=== PATIENT | male | born 1955 | race Caucasian/White ===

== ENCOUNTER → 2017-04-17 | Day surgery (SDC) | payer MEDICARE, OTHER ==
[2017-04-13 08:46] VITALS: BMI 26.0
--- NOTE | 2017-04-13 09:21 | PAT Medication Instructions ---
Service Date Apr 13, 2017. Current Home Medication List Aspirin (Aspirin Ec), 650 MG PO PRN Tapentadol Hcl (Nucynta), 150 MG PO HS [Vicodin], 1 TAB PO QID Medication Instructions For Your Scheduled Surgery - Check with for instructions: Aspirin (Aspirin Ec), 650 MG PO PRN - Take the following medications the morning of surgery with a sip of water: [Vicodin], 1 TAB PO QID (may take if needed up to 4 hours prior to surgery if needed) - Take the following medications as scheduled the night before surgery: Tapentadol Hcl (Nucynta), 150 MG PO HS [Vicodin], 1 TAB PO QID If you have any questions please call us atAspirin (Aspirin Ec), 650 MG PO PRN or [phone] or [phone]
[~2017-04-17] VITALS: Ht 167.6 cm; Wt 72.9 kg
[~2017-04-17] MED LIST: ASPI325T39 PO; ATROPINE SULFATE 0.1 MG/ML 5ML SYR IV PRN; BACITRACIN OINT 15 GM TUBE ONE; EpHEDrine SULFATE INJ 50 MG/ML AMP IV PRN; FENTANYL CITRATE INJ 50 MCG/1 ML 2 ML VIAL IV PRN; FENTANYL CITRATE INJ 50 MCG/1 ML 2 ML VIAL ONE; LACTATED RINGER'S 1000ML 1,000 ML IV SCH; LIDOCAINE HCL 1% 20 ML VIAL ONE; LIDOCAINE HCL 2% 2 ML VIAL (20MG/ML) ONE; LIDOCAINE/EPINEPHRINE 1% 20 ML VIAL ONE; MIDAZOLAM HCL 1 MG/ML 2ML VIAL ONE; ONDANSETRON INJ 2 MG/ML 2 ML VIAL IV PRN; OXYCODONE/ACETAMINOPHEN 5-325 TAB PO PRN; PROMETHAZINE HCL INJ 6.25 MG in SODIUM CHLORIDE 0.9% 50ML 50 ML IV PRN; PROPOFOL IV EMULSION 10 MG/ML 20 ML VIAL IV ONE; SODIUM CHLORIDE 0.9% 1000ML 1,000 ML IV SCH; TAPE50TA5 PO; VICODIN PO
[2017-04-17 05:40] VITALS: BP 143/87; PULSE 87; TEMP 36.5; O2SAT 96; Ht 167.6 cm; Wt 72.9 kg
--- NOTE | 2017-04-17 07:05 | History & Physical Bridge Note ---
H&P Re-Evaluation Bridge Note: I have examined the patient, reviewed the History & Physical and in the interval since the performance of the History & Physical I have noted the following changes of clinical significance: No changes noted
--- NOTE | 2017-04-17 08:14 | [facility] Post Operative Brief Note ---
Immediate Operative Summary Operative Date Apr 17, 2017. Pre-Operative Diagnosis Chronic intractable headache, unspecified headache left temporal area Post-Operative Diagnosis Chronic intractable headache, unspecified headache left temporal area Procedure(s) Performed Left temporal artery biopsy Surgeon Dr. Fan Castellanos Client Strategist Surgeon(s) Carlita Oakley PA-C Estimated Blood Loss 3 mL Findings See dictation Specimens Permanent specimens A: Left temporal artery biopsy Drains None Anesthesia Local with IV sedation Complication(s) None Disposition Recovery Room / PACU
--- NOTE | 2017-04-17 08:24 | Discharge Instructions ---
Discharge Instructions Date of Service Apr 17, 2017. Admission Reason for Admission: Chronic Intractable Headaches Discharge Discharge Diagnosis / Problem: Same Discharge Goals Goal(s): Diagnostic testing Activity Recommendations Activity Limitations: resume your previous activity . Instructions / Follow-Up Instructions / Follow-Up MEDICATIONS: Resume previous medications unless instructed otherwise by your surgeon. * Ibuprofen 600 mg every 6 hours with food * Tylenol 650 mg every 4 hours, as needed for pain SPECIAL CARE INSTRUCTIONS: * May shower in 24 hours. Let water run over area and pat dry. * Leave steri strips on for 7 days and then remove * Call the surgeon's office with any questions or concerns - (ex. temperature higher than 101 degrees F, excessive bleeding or pain). FOLLOW UP VISIT: If not already scheduled, please call the office to schedule a two week follow- up appointment. Office number Current Hospital Diet Patient's current hospital diet: Discharge Diet Recommended Diet: Regular Diet Procedures Procedures Performed: Left temporal artery biopsy Pending Studies Studies pending at discharge: yes List of pending studies: Pathology Medical Emergencies . Who to Call and When: Medical Emergencies: If at any time you feel your situation is an emergency, please call 911 immediately. . Non-Emergent Contact Non-Emergency issues call your: Primary Care Provider, Surgeon Call Non-Emergent contact if: your pain is worsening, wound has increased drainage, wound has increased redness . "Provider Documentation" section prepared by Fan Castellanos. . VTE Core Measure Inpt VTE Proph given/why not?: Treatment not indicated
--- NOTE | 2017-04-17 08:36 | Anesthesiology Progress Note ---
Anesthesia Post Op Note Date & Time Apr 17, 2017 at 08:36 Vital Signs Pain Intensity: 7.0 Vital Signs Past 12 Hours Date Time Temp Pulse Resp B/P (MAP) Pulse Ox O2 Delivery O2 Flow Rate FiO2 04/17/17 08:25 69 16 121/82 100 Oxymask 10 04/17/17 08:19 36.3 66 12 119/81 99 Oxymask 10 04/17/17 05:40 36.5 87 18 143/87 (105) 96 Room Air Notes Mental Status: alert / awake / arousable, participated in evaluation Pt Amnestic to Procedure: Yes Nausea / Vomiting: adequately controlled Pain: adequately controlled Airway Patency, RR, SpO2: stable & adequate BP & HR: stable & adequate Hydration State: stable & adequate Anesthetic Complications: no major complications apparent
[2017-04-17 08:55] VITALS: BP 148/85; PULSE 67; TEMP 36.7; O2SAT 95
[2017-04-17 09:25] VITALS: BP 141/93; PULSE 77; O2SAT 96
--- NOTE | 2017-04-17 09:29 | OPERATIVE REPORT ---
DATE OF OPERATION: 04/17/2017 PREOPERATIVE DIAGNOSIS: Intractable headaches/possible temporal arteritis. POSTOPERATIVE DIAGNOSIS: Same. PROCEDURE: Left temporal artery biopsy. SURGEON: Dr. Castellanos. MEDIA ASSOCIATE: Carlita Oakley PA-C. FINDINGS: The temporal artery was easily palpated. It was easily identified. A section measuring 1.5 to 2 cm was removed. The artery was of normal caliber. There was not a lot of inflammatory response around it. TECHNIQUE: The patient was given intravenous sedation and the artery was palpated and the course of the artery was marked on the skin. The area was then prepped and draped in the usual sterile fashion. The skin was anesthetized with 1% Xylocaine without epinephrine. Skin incision was made, carried down through the subcutaneous tissue to the temporal fascia which was opened, exposing the artery. The artery was then unroofed proximally and distally, and it was then from the enveloping tissue using blunt dissection. It was clamped proximally and distally. The intervening portion removed at each end was ligated with 4-0 silk tie. Hemostasis was obtained at all times using electrocautery. There was no bleeding at that point. The deep tissues were approximated with a running 4-0 Vicryl and the skin was closed with 4-0 Monocryl in a running subcuticular fashion. The skin was cleansed, dried, benzoin placed, Steri-Strips applied. Estimated blood loss was 3 mL. Sponge, needle and instrument counts were correct prior to closure. The patient tolerated the surgical procedure without complication and was transferred to recovery. I attest to the content of the Intraoperative Record and any orders documented therein. Any exception s are noted below.
[2017-04-17 09:47] VITALS: BP 142/89; PULSE 78; TEMP 36.5; O2SAT 95
== END | disposition home or self-care (01) ==
LOC: C.ACU 05:16
PROVIDERS: ATTEND Surgery
DX: R51 Headache (principal); Z98.890 Other specified postprocedural states; Z68.26 Body mass index [BMI] 26.0-26.9, adult; Z90.89 Acquired absence of other organs